=== PATIENT | male | born 1930 | race Caucasian/White ===

== ENCOUNTER → 2016-09-22 | Day surgery (SDC) | payer MEDICARE, OTHER ==
[~2016-09-22] MED LIST: ACETAMINOPHEN PO; ACETAMINOPHEN PR; AMLODIPINE BESYL5 MG PO; ANUSOL-HC21 GM TOP; ASPIRIN EC81 M1 PO; ASPIRIN PO; ASPIRIN81 M1 PO; BACTRIM DS TABL1 TAB PO; BAYER ASPIRIN325 M1 PO; BENAZEPRIL PO; BENTYL10 MG PO; BENZONATATE PO; CALCIUM 600 +1 EAC4; CLEOCIN HCL300 M1 PO; CLEOCIN PO; CLOBETASOL E 0.60 GM TOP; COUMADIN5 MG PO; DARVOCET-N 1001 TA2 PO; FISH OIL 1,0001 CAP PO; FISH OIL 1,2001 EAC2 PO; FISH OIL EC 1,1 EACH; FLOMAX0.4 M1; FLOMAX0.4 M1 PO; FLOMAX0.4 MG PO; GABAPENTIN300 M2 PO; GABAPENTIN300 MG PO; IBUPROFEN PO; IBUPROFEN800 MG PO; KEFLEX PO; LASIX PO; LEVOTHYROXINE25 MCG PO; LODRANE 241 CAP.SR . PO; LOPRESSOR PO; LORTAB 5/500 TA1 TA1 PO; LOTENSIN10 MG PO; LOTRIMIN 1% CR30 GM EXT; LOW DOSE ASPIRI81 M1; MAXIMUM DAILY1 EACH PO; MEN'S ONE DAILY1 TA1 PO; METOPROLOL PO; METOPROLOL SUCC25 MG PO; METOPROLOL TAR25 MG PO; MULTI VITAMIN1 EACH; MULTI-VITAMIN1 TAB PO; MULTIVITAMIN W-1 TAB PO; NASAL SPRAY; NEXIUM PO; NITROGLYGERIN0.4 MG SL; NORVASC PO; TRAMADOL HCL50 M1 PO; TRAMADOL HCL50 M2 PO; TRIAMTERENE-HCT1 TA7 PO; TYLENOL EXTRA STRENG; TYLENOL EXTRA500 M2 PO; ULTRAM PO; VICODIN 5/1 TAB 5/50 PO; VICODIN ES PO; VIT E PO; VITAMIN B 12 PO; VITAMIN E400 UNI1 PO; VITAMIN E400 UNI2; VITAMIN E400 UNI4 PO; ZITHROMAX PO; ZITHROMAX1 G/PKT PO; ZOFRAN PO; ZYVOX600 MG PO
--- NOTE | ~2016-09-22 | OR ---
Unit #: [id number] #: [id number] Patient: ESTHER MORRIS [id number] [address] [address] [id number] O MR#: [id number] NAME: ESTHER MORRIS ROOM: Date of Procedure: 09/22/2016 Admission Date: 09/22/2016 Surgeon: Simon Villalobos M.D. : 1930 Attending Physician: Simon Villalobos M.D. Primary Care Physician: Tamika Mehta M.D. OPERATIVE REPORT PREOPERATIVE DIAGNOSES The patient has presented with postprandial dyspepsia, retrosternal ascending heartburn, and epigastric pain. He is on twice a day Nexium. PROCEDURE PERFORMED Upper gastrointestinal endoscopy. POSTOPERATIVE DIAGNOSES A single diverticulum in the distal esophagus. Otherwise, normal examination up to third part of duodenum. RECOMMENDATIONS The patient should avoid sleeping within couple of hours after eating. He will be followed up in the office in 6 to 8 weeks' time. SEDATION USED MAC. DESCRIPTION OF PROCEDURE Following detailed explanation of the potential risks and complications of an upper endoscopy, namely perforation, bleeding, and complication related to sedation, the patient was brought to GI lab and laid in the left lateral decubitus position. Lubricated tip of the Olympus video upper endoscope was passed through the bite block into the proximal esophagus under direct vision. The entire esophageal mucosa was examined. The patient was noted to have a single diverticulum in the distal esophagus. Otherwise, examination was normal. There being no esophagitis or hiatus hernia. The scope was then advanced into the gastric cavity and the latter was insufflated. Mucosa of the fundus, body, and antrum was examined and appeared unremarkable. Pylorus was intubated with visualization of the normal duodenal bulb and second and third part of the duodenum. Upon withdrawal and retroflexion, incisura, cardia, and greater curve was examined and no additional findings were noted. The scope was then withdrawn in the distal esophagus. The entire esophageal mucosa was examined all the way up to pharynx. No additional findings were noted. The patient tolerated the procedure without any postprocedure complications. Dictated by... Simno Villalobos M.D. Unit #: [id number] #: [id number] Patient: ESTHER MORRIS/jesenia TD: 09/23/2016 01:50 JOB #: [id number] OPERATIVE REPORT Page 1 of 1 X Simon Villalobos MD PROCEDURE OPERATIVE NOTE
== END | disposition home or self-care (01) ==
LOC: COPS 08:53
DX: R10.13 Epigastric pain (principal); K22.5 Diverticulum of esophagus, acquired; I25.2 Old myocardial infarction; E03.9 Hypothyroidism, unspecified; N40.0 Benign prostatic hyperplasia without lower urinary tract symptoms; M19.90 Unspecified osteoarthritis, unspecified site; K21.9 Gastro-esophageal reflux disease without esophagitis; Z88.8 Allergy status to other drugs, medicaments and biological substances; Z79.01 Long term (current) use of anticoagulants; Z79.82 Long term (current) use of aspirin; Z79.899 Other long term (current) drug therapy; Z90.49 Acquired absence of other specified parts of digestive tract; Z90.5 Acquired absence of kidney; Z96.653 Presence of artificial knee joint, bilateral; Z98.41 Cataract extraction status, right eye; Z98.42 Cataract extraction status, left eye; Z98.890 Other specified postprocedural states

== ENCOUNTER → 2017-01-25 | Outpatient (CLI) | payer MEDICARE, OTHER ==
--- NOTE | ~2017-01-25 | US6 ---
[facility] A Service of [facility] RADIOLOGY TEXT RESULTS PATIENT: ESTHER MORRIS LOCATION: [facility] : [birth year] UNIT #: [id number] AGE: [address]: Ani Ahuja APRN SEX: M ORDER DR: [id number] [facility] [address] [place], [place] [address] [id number] O MR#: [id number] Acc #: [id number] NAME: ESTHER MORRIS : 1930 SEX: M STUDY DATE/TIME: 01/25/2017 9:59 UNIT: [facility] ROOM: STUDY DESCRIPTION: US Abdominal Limited Attending Physician: Ani Ahuja A.P.R.N. Referring Physician: Ani Ahuja A.P.R.N. Ordering Physician: Ani Ahuja A.P.R.N. Primary Care Physician: Tamika Mehta M.D. MEDICAL IMAGING REPORT This report is preliminary unless electronic signature is present EXAM Left upper quadrant ultrasound 01/25/2017 HISTORY Left upper quadrant pain and left flank pain for 3 months status post fall on left side 3 months ago. FINDINGS The spleen measures 6.9 cm x 3 cm x 7 cm and is homogeneous in echotexture. No cystic or solid mass lesions are seen within the spleen. Normal blood flow is seen throughout the spleen. The left kidney is not visualized. No left kidney was seen on CT scan of the abdomen and pelvis 08/17/2010. IMPRESSION 1. The spleen is normal in appearance. 2. The left kidney was not visualized. Dictated by... Patrick Berman M.D. THIS IS AN ELECTRONICALLY VERIFIED REPORT Patrick Berman M.D. at 01/26/2017 7:35 AM KRT/marilee TD: 01/25/2017 16:14 JOB #: [id number] MEDICAL IMAGING REPORT Page 1 of 1 COPY
== END | disposition home or self-care (01) ==
LOC: CGUS 09:35
DX: R10.9 Unspecified abdominal pain (principal)
CPT/HCPCS: 76705